=== PATIENT | female | born 1990 | race Caucasian/White ===

== ENCOUNTER → 2020-10-26 | Outpatient (CLI) | payer BC, OTHER ==
[2020-10-26 08:28] LABS: HEMOGLOBIN 13.4 gm/dl (12.3-15.3); RED BLOOD COUNT 4.6 M/UL (4.00-5.10); WHITE BLOOD COUNT 9.1 K/UL (4.5-11.0)
[2020-10-26 08:58] LABS: BUN/CREATININE RATIO 17 (0-10)
== END ==
LOC: EDBD 07:09 → LAB 07:09
PROVIDERS: Family Medicine
DX: Z13.220 Encounter for screening for lipoid disorders (principal); R53.83 Other fatigue; E55.9 Vitamin D deficiency, unspecified; N63.32 Unspecified lump in axillary tail of the left breast; Z87.42 Personal history of other diseases of the female genital tract
CPT/HCPCS: 36415; 80053; 80061; 84439; 84443; 85025

== ENCOUNTER → 2021-01-06 | Outpatient (CLI) | payer BC, OTHER | LOC: MAMO 13:14 | DX: N63.32 Unspecified lump in axillary tail of the left breast (principal) | CPT/HCPCS: 76641-LT; 77065; G0279 ==